=== PATIENT | female | born 1970 | race Two or more races ===

== ENCOUNTER → 2025-07-13 | Outpatient (CLI) | payer BC ==
[2025-07-14 11:07] LABS: Anti-Nuclear Antibody Direct Negative (Negative)
== END | disposition home or self-care (01) ==
LOC: LAB 15:05
PROVIDERS: ATTEND Student in an Organized Health Care Education/Training Program
DX: J84.10 Pulmonary fibrosis, unspecified (principal); M25.50 Pain in unspecified joint; Z11.1 Encounter for screening for respiratory tuberculosis
CPT/HCPCS: 36415; 84550; 85652; 86038; 86431